=== PATIENT | male | born 1985 | race Caucasian/White ===

== ENCOUNTER 2019-01-03 18:49 | Emergency (ER) | payer OTHER ==
[~2019-01-03] VITALS: Ht 180.3 cm; Wt 72.3 kg
[2019-01-03 18:52] VITALS: BP 122/78
[2019-01-03] MEDS ORDERED: SILVER SULF. CRM 1% , 25GM ONE (19:17)
[2019-01-03] MEDS ORDERED: SILVER SULF. CRM 1% , 25GM TP ONE (19:30)
--- NOTE | 2019-01-03 19:59 | NUR ---
DRESSING APPLIED TO RIGHT HAND AND RIGHT FOOD. SILVADENE APPLIED AND WRAPPED
== END 2019-01-03 20:01 | disposition home or self-care (01) ==
LOC: ED 19:55
DX: T23.161A Burn of first degree of back of right hand, initial encounter (principal); T25.122A Burn of first degree of left foot, initial encounter; T31.0 Burns involving less than 10% of body surface; X10.2XXA Contact with fats and cooking oils, initial encounter; Y93.89 Activity, other specified; Y92.69 Other specified industrial and construction area as the place of occurrence of the external cause; Y99.0 Civilian activity done for income or pay
CPT/HCPCS: 16020; 99284

== ENCOUNTER 2019-01-07 15:59 | Emergency (ER) | payer OTHER ==
[~2019-01-07] VITALS: Ht 180.3 cm; Wt 70.4 kg
[2019-01-07 16:02] VITALS: BP 142/105
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
--- NOTE | 2019-01-07 16:34 | NUR ---
Patient/Caregiver given discharge instructions and they have confirmed that they understand the instructions. Patient ambulatory with steady gait.
== END 2019-01-07 16:36 | disposition home or self-care (01) ==
LOC: ED 16:18
DX: Z48.01 Encounter for change or removal of surgical wound dressing (principal)
CPT/HCPCS: 99283